=== PATIENT | female | born 1965 | race American Indian/Alaskan Native ===

== ENCOUNTER 2019-06-21 11:02 | Emergency (ER) | payer OTHER ==
[2019-06-21 11:09] VITALS: BP 138/86
[2019-06-21] MEDS ORDERED: traMADol 50 MG TAB PO ONE (12:12)
--- NOTE | 2019-06-21 12:41 | Emergency Department Report ---
Upper Extremity - HPI Chief Complaint: Shoulder Injury Stated Complaint: RT ARM PAIN Time Seen by Provider: 06/21/19 12:20 Upper Extremity: Right Shoulder Occurred When: 3 Days Symptoms: Yes Pain with Movement, Yes Limited Range of Movement, No Deformity, No Numbness, No Weakness, No Swelling, No Bruising/Ecchymosis, No Laceration or Abrasion ED Review of Systems ROS: Stated complaint: RT ARM PAIN Other details as noted in HPI Comment: All other systems reviewed and negative ED Past Medical Hx - Past Medical History Previous Medical History?: No - Surgical History Past Surgical History?: No - Social History Smoking Status: Never Smoker Substance Use Type: None - Medications Home Medications: Home Medications Medication Instructions Recorded Confirmed Last Taken Type traMADoL [Ultram 50 MG tab] 50 mg PO Q6HR PRN #21 tablet 06/21/19 Unknown Rx Upper Extremity Exam - Exam General: Vital signs noted. No distress. Alert and acting appropriately. Head and Torso: No HEENT Abnormality, No Neck Tenderness, No Chest/Lungs Abnormality, No Abdominal Tenderness, No Back Tenderness Shoulder Exam: Yes Shoulder Tenderness (pain with lifting ), Yes Normal Range of Motion in Shoulder (unable to raise her left arm above 30 degrees without pain ), No Clavicle Tenderness, No Shoulder Deformity, No AC Joint Tenderness Arm Exam: No Arm/Humerus Tenderness, No Arm Deformity Elbow: No Elbow Tenderness, No Normal Range of Motion in Elbow, No Elbow Deformity Forearm: No Forearm Tenderness, No Forearm Deformity, No Pain with Pronation, No Pain with Supination Wrist: No Wrist Tenderness, No Normal ROM in Wrist, No Wrist Deformity, No Snuffbox Tenderness, No Pain with Axial Thumb Compression Hand: No Hand Tenderness, No Hand Deformity, No Digit Tenderness, No Normal ROM in Digit(s), No Digit(s) Deformity, No Tendon Dysfunction CMS Exam: No Broken Skin, No Normal Distal Pulses, No Normal Capillary Refill, No Normal Distal Sensation ED Course Vital Signs 06/21/19 11:08 Temperature 97.6 F Pulse Rate 104 H Respiratory 18 Rate Blood Pressure 138/86 O2 Sat by Pulse 99 Oximetry ED Medical Decision Making - Radiology Data Radiology results: report reviewed - Medical Decision Making 54-year-old female states that on Monday she was putting up [employer] decorations when she developed right shoulder pain. She on the same day she was seen by her primary care doctor ordered her Zanaflex and naproxen. Patient states she had no improvement with those medications. She reports not being able to raise her right arm up to shoulder. Xray of her left shoulder shows tendinitis. With assistance pt can fully raise her left arm above her shoulder. Distal pulse intact. Strong hand grasp. Sensation intact. Discuss treatment of tendonitis with patient. Instruct to follow up with her PCP if no improvment or worsening symptoms Critical care attestation.: If time is entered above; I have spent that time in minutes in the direct care of this critically ill patient, excluding procedure time. ED Disposition Clinical Impression: Right shoulder tendonitis Disposition: - TO HOME OR SELFCARE Is pt being admited?: No Does the pt Need Aspirin: No Condition: Stable Instructions: Calcific Tendinitis (ED) Additional Instructions: Continue with Zanaflex and Naprosyn as prescribed by your PCP. Cool compress on 15 minutes off 15 minutes 4 times per day. Follow up with PCP for referral to Orthopedist and or Physical therapy if no improvement in one week. Prescriptions: traMADoL [Ultram 50 MG tab] 50 mg PO Q6HR PRN #21 tablet PRN Reason: Pain Referrals: MANUELA PETERS MD [Primary Care Provider] - 3-5 Days Forms: Work/School Release Form(ED) Time of Disposition: 13:26
--- NOTE | 2019-06-21 12:48 | XRay Report ---
RIGHT SHOULDER 3 VIEWS INDICATION: right shoulder pain. COMPARISON: None. IMPRESSION: No acute osseous or soft tissue abnormality. No significant DJD. There is an ill-defi evan soft tissue calcification lateral to the humeral head measuring 2.3 cm x 0.7 cm. This overlies th e expected position of the distal infraspinatus or supraspinatus tendon consistent with calcific tend initis. Signer Name: Pipo Rivera Jr, MD Signed: 06/21/2019 12:44 PM Workstation Name: [id number]
== END 2019-06-21 13:51 | disposition home or self-care (01) ==
LOC: ED 11:02
DX: M75.31 Calcific tendinitis of right shoulder (principal); Z79.899 Other long term (current) drug therapy